=== PATIENT | female | born 1940 | race Asian ===

== ENCOUNTER 2020-10-11 20:12 | Emergency (ER) | payer MEDICARE, MEDICAID, SELFPAY ==
[~2020-10-11] VITALS: Ht 152.4 cm; Wt 54.4 kg
[2020-10-11 20:12] VITALS: BP_SYST 156
--- NOTE | 2020-10-11 20:12 | NUR ---
Patient to ER bed 8 to gown for evaluation. Side rails up. Report RECIEVED
--- NOTE | 2020-10-11 20:30 | NUR ---
PT BIB [facility]BUL[facility] ALERT BUT CONFUSED WITH FEVER POSSIBLE COVID
[2020-10-11] MEDS ORDERED: ACETAMINOPHEN 500 MG TABLET ONE (20:59)
[2020-10-11] MEDS ORDERED: ACETAMINOPHEN 500 MG TABLET PO ONE (21:00)
[2020-10-11 21:17] LABS: BASOPHILS % (AUTO) 0.2 % (0.0-2.0); HEMATOCRIT 43.9 % (36-48); LYMPHOCYTES # (AUTO) 0.8 K/uL (1.0-5.5); LYMPHOCYTES % (AUTO) 8.2 % (20.5-51.5); MEAN CORPUSCULAR HEMOGLOBIN 33 pg (27-31); MEAN CORPUSCULAR HGB CONC 34 % (32-36); MEAN CORPUSCULAR VOLUME 97 fL (79.0-98.0); MONOCYTES # (AUTO) 0.7 K/uL (0.0-1.0); MONOCYTES % (AUTO) 6.5 % (1.7-9.3); NEUTROPHILS # (AUTO) 8.8 K/uL (1.8-7.7); NEUTROPHILS % (AUTO) 85.1 % (40.0-70.0); PLATELET COUNT (AUTO) 129 K/uL (130-430); RED BLOOD CELL COUNT(AUTO) 4.54 MIL/uL (4.2-6.2); RED CELL DISTRIBUTION WIDTH 13.3 % (9.0-15.0); WHITE BLOOD COUNT (AUTO) 10.3 K/uL (4.8-10.8)
--- NOTE | 2020-10-11 21:20 | NUR ---
MRSA AND COVID SWAB PERFORMED IN [facility]ARES AND SENT TO LAB
[2020-10-11 21:32] LABS: ANION GAP 7 (5-15); CALCIUM 8.3 mg/dL (8.4-11.0); CHLORIDE 100 mmol/L (98-107); CREATININE 0.79 mg/dL (0.55-1.30); GLUCOSE 110 mg/dL (70-99); POTASSIUM 3.7 mmol/L (3.5-5.1); SODIUM SERUM 136 mmol/L (136-145); UREA NITROGEN, BLOOD 17 mg/dL (8-21)
--- NOTE | 2020-10-11 21:35 | NUR ---
PORTABLE CHEST XRAY DONE AT [facility]
[2020-10-11 21:40] LABS: ALANINE AMINOTRANSFERASE 22 U/L (12-78); ALBUMIN 3.9 g/dL (3.4-4.8); ASPARTATE AMINOTRANSFERASE 39 U/L (10-37); BILIRUBIN,DIRECT 0.3 mg/dL (0.0-0.3); LIPASE 142 U/L (73-393); TOTAL BILIRUBIN 0.6 mg/dL (0.0-1.0)
--- NOTE | 2020-10-11 21:40 | NUR ---
ER at bedside examining patient.
[2020-10-11] MEDS ORDERED: cefTRIAXone 1 GM in D5W 50 ML IV ONE (22:45)
[2020-10-11] MEDS ORDERED: NACL 0.9% 1,000 ML IV ONE (22:45)
--- NOTE | 2020-10-11 22:53 | NUR ---
Critical Lab - COVID positive
[2020-10-11 22:59] LABS: BILIRUBIN,URINE 1+ (NEGATIVE); BLOOD, URINE 1+ (NEGATIVE); CLARITY/URINE CLEAR (CLEAR); COLOR,URINE YELLOW (YELLOW); GLUCOSE,URINE NEGATIVE (NEGATIVE); KETONES,URINE 1+ (NEGATIVE); LEUKOCYTE ESTERASE ,URINE NEGATIVE (NEGATIVE); NITRITE, URINE NEGATIVE (NEGATIVE); PH,URINE 5.5 (5.0-8.0); PROTEIN URINE 2+ (NEGATIVE); UROBILINOGEN,URINE 0.2 (0.2-1.0)
[2020-10-11] MEDS ORDERED: cefTRIAXone 1 GM VIAL ONE (23:05)
[2020-10-11 23:06] LABS: BACTERIA,URINE RARE /HPF (None Seen); WBC,URINE 0-3 /HPF (0-3)
[2020-10-12] MEDS ORDERED: DEXAMETHASONE SOD PHOSPHATE 10 MG/ML VIAL IVP ONE (00:15)
--- NOTE | 2020-10-12 01:00 | NUR ---
PT RESTING QUIETLY IN NO DISTRESS AWAITING DISPOSITION.
--- NOTE | 2020-10-12 03:08 | NUR ---
REPORT GIVEN TO ROSE FELTON WHO WILL ASSUME CARE
--- NOTE | 2020-10-12 05:00 | NUR ---
Pt resting, no complaints at this time.
--- NOTE | 2020-10-12 05:55 | NUR ---
Productive cough present, pt given emesis bag. Pt spitting up green/yellow like phlegm.
--- NOTE | 2020-10-12 07:01 | NUR ---
TRANSFER INFO [facility] RM: [id number] ACCEPTING: DR. TERESA REPORT #: [phone] ALS ETA 0800 SPOKE TO MARIA ESTHER
--- NOTE | 2020-10-12 07:10 | NUR ---
Report given to Liyah ROSE for continuation of care
--- NOTE | 2020-10-12 08:13 | NUR ---
Patient to be transferred to [facility] . Is being transferred due to higher level of care. Receiving facility has accepting physician and available space. ER physician has signed transfer form. Patient or responsible constitution party has agreed to transfer and signed form. Patient belongings inventoried and will be sent with patient. Copy of nursing notes, lab reports, EKG, Physicians Orders and X-rays to be sent with patient. Report called to at receiving facility. Receiving physician is . [facility] ambulance service has been called for transfer. ETA is [id number].
[2020-10-12 08:14] VITALS: BP_SYST 138
== END 2020-10-12 08:13 | disposition short-term general hospital (02) ==
LOC: SED 20:12
DX: U07.1 COVID-19 (principal); I10 Essential (primary) hypertension; Z88.2 Allergy status to sulfonamides; Z88.5 Allergy status to narcotic agent
CPT/HCPCS: 36415; 71045; 80048; 81000; 80076; 83605; 83690; 83880; 84484; 85025; 87040; 87426; 93005; 96365; 96375; 99285; J0696; J1100; J7030